=== PATIENT | female | born 1995 | race Caucasian/White ===

== ENCOUNTER 2023-01-26 06:49 | Emergency (ER) | payer BC ==
[~2023-01-26] VITALS: Ht 154.9 cm; Wt 82.0 kg
[2023-01-26 07:09] VITALS: O2SAT 98
[2023-01-26 07:50] LABS: BASOPHILS % 0.4 % (0.0-2.0); HEMATOCRIT. 40.3 % (36.0-48.0); HEMOGLOBIN. 13.5 g/dL (12.0-16.0); LYMPHOCYTES % 20.5 % (20.0-50.0); MEAN CORPUSCULAR HEMOGLOBIN 28.1 pg (28.0-32.0); MEAN CORPUSCULAR VOLUME 83.9 fL (81.0-99.0); MEAN PLATELET VOLUME 7.4 fl (7.4-10.4); MONOCYTES % 7.5 % (2.0-8.0); NEUTROPHILS % 70.6 % (40.0-76.0); PLATELET 308 x1000/uL (130-400); RED CELL DISTRIBUTION WIDTH 14.8 % (11.6-14.6)
[2023-01-26 07:57] LABS: CHLORIDE 108 mEq/L (98-107)
[2023-01-26 08:15] LABS: CLARITY URINE CLOUDY (CLEAR); COLOR URINE YELLOW (YELLOW); KETONES URINE NEGATIVE (NEGATIVE); LEUKOCYTE ESTERASE URINE 2+ (NEGATIVE); NITRITE URINE NEGATIVE (NEGATIVE); OCCULT BLOOD URINE 1+ (NEGATIVE); PH URINE 5.5 (4.5-8.0); PROTEIN URINE TRACE (NEGATIVE); SPECIFIC GRAVITY URINE 1.014 (1.005-1.030); UROBILINOGEN URINE 0.2 E.U./dL (0.2-1.0)
[2023-01-26 09:40] VITALS: TEMP 98.3
[2023-01-26] MEDS ORDERED: KETOROLAC 30MG/ML VIAL IV ONE (11:30)
[2023-01-26] MEDS ORDERED: IBUPROFEN 600MG TABLET PO NR (11:45)
[2023-01-26 11:54] VITALS: BP 110/64; PULSE 64; RESP 17
[2023-01-26] MEDS ORDERED: NITR-87 MT (12:05)
[2023-01-26] MEDS ORDERED: IBUP-2029 MT ×3 (12:05→12:06)
== END 2023-01-26 12:39 | disposition home or self-care (01) ==
LOC: ER 06:49
DX: N39.0 Urinary tract infection, site not specified (principal)
CPT/HCPCS: 80053; 81003; 81025; 83690; 85025; 87086; 36415; 99283; Z7610; J1885